=== PATIENT | male | born 1935 | race African-American/Black ===

== ENCOUNTER 2020-07-27 07:21 | Emergency (ER) | payer MEDICARE, BC | END 2020-07-27 08:29 | disposition home or self-care (01) | LOC: ERS 07:21 | DX: T16.2XXA Foreign body in left ear, initial encounter (principal); X58.XXXA Exposure to other specified factors, initial encounter | CPT/HCPCS: 99282 ==

== ENCOUNTER 2020-09-11 17:46 | Inpatient (IN) | payer MEDICARE, BC ==
[2020-09-11 18:39] LABS: Hemoglobin 13.3 g/dL (14.0-18.0); Mean Corpuscular HGB CONC 33.7 g/dL (32.0-36.0); Mean Corpuscular Hemoglobin 29.7 pg (27.0-31.0); Mean Corpuscular Volume 88.2 fL (78.0-98.0); RBC Distribution Width 13.5 % (11.5-14.5); Red Blood Cell (RBC) Count 4.46 mill/uL (4.70-6.10); White Blood Cell (WBC) Count 6.2 thou/uL (4.8-10.8)
[2020-09-11 19:03] LABS: #Lymphocytes 0.6 thou/uL (1.20-3.40); #Monocytes 0.5 thou/uL (0.11-0.59); #Neutrophils 5.1 thou/uL (1.40-6.50); %Basophils 0.7 % (0.0-1.0); %Eosinophils 0.1 % (0.0-10.0); %Lymphocytes 9.8 % (21.0-51.0); %Monocytes 7.8 % (0.0-10.0); %Neutrophils 81.7 % (42.0-75.0); Large Platelets SLIGHT; MDiff Complete? YES; Mean Platelet Volume 11.8 fL (7.4-10.4); Platelet Count 95 thou/uL (130-400); Platelet Morphology Comment Appears Decreased; RBC Morphology Normal
[2020-09-11 19:17] LABS: CKMB 4.5 ng/mL (0-6.6)
[2020-09-11 19:35] LABS: SARS-CoV-2 NAA Rapid Test DETECTED (NotDetected)
[2020-09-11] MEDS ORDERED: Aspirin Chewable 81 MG TAB ONE (19:45)
[2020-09-11 20:50] LABS: Albumin 4.2 g/dL (3.4-4.8)
[2020-09-11 20:51] LABS: Chloride 108 mmol/L (98-107); Potassium 4.4 mmol/L (3.5-5.1); Sodium 142 mmol/L (136-145)
[2020-09-11 20:52] LABS: Calcium 8.4 mg/dL (7.8-10.44); Glucose 188 mg/dL (83-110)
[2020-09-11 20:53] LABS: Globulin 3.8 g/dL (2.4-3.5)
[2020-09-11 20:54] LABS: Anion Gap 18 mmol/L (10-20); Bilirubin, Total 0.5 mg/dL (0.2-1.2); Carbon Dioxide 20 mmol/L (23-31)
[2020-09-11] MEDS ORDERED: Diltiazem 125 MG/25 ML ONE ×2 (20:54→21:33)
[2020-09-11 20:55] LABS: Alkaline Phosphatase 82 U/L (40-110)
[2020-09-11 20:56] LABS: Calc. Creatinine Clearance 0 mL/min (70-130)
[2020-09-11 20:57] LABS: BUN (Urea Nitrogen) 67 mg/dL (8.4-25.7)
[2020-09-11] MEDS ORDERED: Dexamethasone 4 mg/ml Vial ONE (20:57)
[2020-09-11] MEDS ORDERED: cefTRIAXone\\ROCEPHIN 1 GM VIAL ONE (20:57)
[2020-09-11] MEDS ORDERED: Enoxaparin Sodium 40 MG/0.4 ML SYRINGE ONE (20:57)
[2020-09-11 20:58] LABS: ALT (SGPT) 25 U/L (8-55); AST (SGOT) 43 U/L (5-34)
[2020-09-12] MEDS ORDERED: Ondansetron PF 4 MG/2 ML Vial IVP PRN ×2 (00:15→00:34)
[2020-09-12] MEDS ORDERED: Ondansetron ODT 4 MG TAB SL PRN (00:15)
[2020-09-12] MEDS ORDERED: Acetaminophen 325 MG TAB PO PRN ×3 (00:15→00:34)
[2020-09-12] MEDS ORDERED: Diltiazem 125 MG in Sodium Chloride 0.9% 100 ML IVPB SCH (00:15)
[2020-09-12] MEDS ORDERED: Sodium Chloride 0.9% 1,000 ML IV SCH (00:15)
[2020-09-12] MEDS ORDERED: HYDROcodone/Acetaminophen 5/325 mg Tablet PO PRN (00:34)
[2020-09-12] MEDS ORDERED: Labetalol HCl 100 MG/20 ML VIAL SLOW IVP PRN (00:34)
[2020-09-12] MEDS ORDERED: Promethazine HCl 12.5 MG in Sodium Chloride 0.9% 50 ML IVPB PRN (00:34)
[2020-09-12] MEDS ORDERED: cloNIDine 0.1 MG TAB PO PRN (00:34)
[2020-09-12] MEDS ORDERED: hydrALAZINE 20 MG/ML VIAL SLOW IVP PRN (00:34)
[2020-09-12] MEDS ORDERED: Guaifenesin DM 100-10/5 ML UDCUP PO PRN (00:34)
[2020-09-12] MEDS ORDERED: Electrolyte Replacement Protocol 1 EACH FS SCH (00:45)
[2020-09-12] MEDS ORDERED: Dextrose 5% in Water 1,000 ML IV PRN (01:07)
[2020-09-12] MEDS ORDERED: Dextrose 50% Abboject 50 ML SYRINGE SLOW IVP PRN (01:07)
[2020-09-12] MEDS: Alogliptin 6.25 MG TAB PO SCH (08:46)
[2020-09-12] MEDS: Famotidine 20 MG TAB PO SCH (08:47)
[2020-09-12] MEDS: Carvedilol 6.25 MG TAB PO SCH ×2 (08:47→20:47)
[2020-09-12] MEDS: Amlodipine 10 MG TAB PO SCH (08:47)
[2020-09-12] MEDS: Allopurinol 100 MG TAB PO SCH (08:47)
[2020-09-12] MEDS: Glimepiride 2 MG TAB PO SCH (08:47)
[2020-09-12] MEDS: Polyethylene Glycol 3350 17 GM Packet PO SCH (08:48)
[2020-09-12] MEDS: Enoxaparin Sodium 40 MG/0.4 ML SYRINGE SC SCH ×2 (08:48→20:49)
[2020-09-12] MEDS: Ascorbic Acid 500 mg Chewable Tablet PO SCH (08:51)
[2020-09-12] MEDS: Zinc Sulfate 220 MG CAP PO SCH (08:51)
[2020-09-12 12:09] LABS: Anion Gap 24 mmol/L (10-20); BUN (Urea Nitrogen) 72 mg/dL (8.4-25.7); Calc. Creatinine Clearance 18 mL/min (70-130); Calcium 7.9 mg/dL (7.8-10.44); Carbon Dioxide 12 mmol/L (23-31); Chloride 107 mmol/L (98-107); Glucose 296 mg/dL (83-110); Magnesium 2.3 mg/dL (1.6-2.6); Potassium 4.9 mmol/L (3.5-5.1); Sodium 138 mmol/L (136-145)
[2020-09-12] MEDS: HumaLOG 300 UNITS/3 ML VIAL SC PRN ×2 (13:15→16:54)
[2020-09-12] MEDS: Atorvastatin Calcium 10 MG TAB PO SCH (20:45)
[2020-09-12] MEDS: cefTRIAXone\\ROCEPHIN 1 GM in Sodium Chloride 0.9% 100 ML IVPB SCH (20:49)
[2020-09-12] MEDS: Dexamethasone 4 mg/ml Vial SLOW IVP SCH (20:55)
[2020-09-12] MEDS: Latanoprost 0.005% Ophth Soln 2.5 ml Bottle EA EYE SCH (20:56)
[2020-09-12] MEDS ORDERED: Azithromycin 500 MG in Syringe 0 ML IVPB SCH (21:00)
[2020-09-12] MEDS ORDERED: Norepinephrine 8 MG/0.9% NS 250 ML ONE (23:29)
[2020-09-12] MEDS ORDERED: Phenylephrine 40 MG in Sodium Chloride 0.9% 250 ML 250 ML IVPB PRN (23:31)
[2020-09-12] MEDS ORDERED: Norepinephrine 8 MG/0.9% NS 250 ML IVPB PRN (23:31)
[2020-09-12 23:38] LABS: #Lymphocytes 0.6 thou/uL (1.20-3.40); #Monocytes 0.5 thou/uL (0.11-0.59); #Neutrophils 8.1 thou/uL (1.40-6.50); %Basophils 0.2 % (0.0-1.0); %Eosinophils 0.1 % (0.0-10.0); %Lymphocytes 6.6 % (21.0-51.0); %Monocytes 5.5 % (0.0-10.0); %Neutrophils 87.6 % (42.0-75.0); Hemoglobin 10.9 g/dL (14.0-18.0); Mean Corpuscular HGB CONC 33.9 g/dL (32.0-36.0); Mean Corpuscular Volume 88.6 fL (78.0-98.0); Mean Platelet Volume 11.2 fL (7.4-10.4); Platelet Count 114 thou/uL (130-400); RBC Distribution Width 13.5 % (11.5-14.5); Red Blood Cell (RBC) Count 3.64 mill/uL (4.70-6.10); White Blood Cell (WBC) Count 9.3 thou/uL (4.8-10.8)
[2020-09-12] MEDS ORDERED: Lactated Ringer's 500 ML IV SCH (23:45)
[2020-09-12 23:48] LABS: Anion Gap 19 mmol/L (10-20); BUN (Urea Nitrogen) 78 mg/dL (8.4-25.7); Calc. Creatinine Clearance 18 mL/min (70-130); Calcium 7.8 mg/dL (7.8-10.44); Carbon Dioxide 18 mmol/L (23-31); Chloride 106 mmol/L (98-107); Glucose 150 mg/dL (83-110); Potassium 4.7 mmol/L (3.5-5.1); Sodium 138 mmol/L (136-145)
[2020-09-12 23:49] LABS: ALT (SGPT) 25 U/L (8-55); AST (SGOT) 36 U/L (5-34); Albumin 3.5 g/dL (3.4-4.8); Alkaline Phosphatase 71 U/L (40-110); Bilirubin, Direct 0.2 mg/dL (0.1-0.3); Bilirubin, Total 0.4 mg/dL (0.2-1.2); Protein, Total 6.6 g/dL (5.8-8.1)
[2020-09-12 23:50] LABS: Lactic Acid 1.6 mmol/L (0.5-2.2)
[2020-09-12] MEDS ORDERED: Sodium Bicarbonate 100 MEQ in Dextrose 5% in Water 1,000 ML IV SCH (23:59)
[2020-09-13] MEDS: Azithromycin 500 MG in Sodium Chloride 0.9% 250 ML 250 ML IVPB SCH ×2 (00:20→22:00)
[2020-09-13 05:42] LABS: Anion Gap 17 mmol/L (10-20); BUN (Urea Nitrogen) 74 mg/dL (8.4-25.7); Calc. Creatinine Clearance 17 mL/min (70-130); Calcium 7.4 mg/dL (7.8-10.44); Carbon Dioxide 20 mmol/L (23-31); Chloride 103 mmol/L (98-107); Glucose 332 mg/dL (83-110); Magnesium 2.2 mg/dL (1.6-2.6); Potassium 4.3 mmol/L (3.5-5.1); Sodium 136 mmol/L (136-145)
[2020-09-13 05:42] LABS: Hemoglobin 11.1 g/dL (14.0-18.0)
[2020-09-13] MEDS: HumaLOG 300 UNITS/3 ML VIAL SC PRN ×2 (05:59→15:41)
[2020-09-13 06:51] LABS: #Lymphocytes 0.6 thou/uL (1.20-3.40); #Monocytes 0.4 thou/uL (0.11-0.59); #Neutrophils 8.2 thou/uL (1.40-6.50); %Basophils 0.3 % (0.0-1.0); %Monocytes 4.3 % (0.0-10.0); %Neutrophils 88.4 % (42.0-75.0); Mean Corpuscular HGB CONC 32.4 g/dL (32.0-36.0); Mean Corpuscular Hemoglobin 29.2 pg (27.0-31.0); Mean Corpuscular Volume 90.3 fL (78.0-98.0); Mean Platelet Volume 11.7 fL (7.4-10.4); Platelet Count 108 thou/uL (130-400); RBC Distribution Width 13.5 % (11.5-14.5); Red Blood Cell (RBC) Count 3.79 mill/uL (4.70-6.10); White Blood Cell (WBC) Count 9.2 thou/uL (4.8-10.8)
[2020-09-13] MEDS: Famotidine 20 MG TAB PO SCH (08:11)
[2020-09-13] MEDS: Ascorbic Acid 500 mg Chewable Tablet PO SCH (08:11)
[2020-09-13] MEDS: Zinc Sulfate 220 MG CAP PO SCH (08:11)
[2020-09-13] MEDS: Allopurinol 100 MG TAB PO SCH (08:11)
[2020-09-13] MEDS: Enoxaparin Sodium 40 MG/0.4 ML SYRINGE SC SCH (08:12)
[2020-09-13] MEDS: Carvedilol 6.25 MG TAB PO SCH ×3 (08:12→22:00)
[2020-09-13] MEDS: Amlodipine 10 MG TAB PO SCH (08:13)
[2020-09-13] MEDS: Polyethylene Glycol 3350 17 GM Packet PO SCH (08:13)
[2020-09-13] MEDS: Glimepiride 2 MG TAB PO SCH (10:46)
[2020-09-13] MEDS: Alogliptin 6.25 MG TAB PO SCH (10:46)
[2020-09-13] MEDS: Sodium Chloride 0.45% 1,000 ML IV SCH (16:36)
[2020-09-13] MEDS ORDERED: Ziprasidone 20 MG VIAL IM PRN (18:26)
[2020-09-13] MEDS ORDERED: Sterile Water 10 ML VIAL FS PRN (18:45)
[2020-09-13] MEDS: cefTRIAXone\\ROCEPHIN 1 GM in Sodium Chloride 0.9% 100 ML IVPB SCH (21:40)
[2020-09-13] MEDS: Cholecalciferol 1,000 UNITS (25 MCG) TAB PO SCH (21:59)
[2020-09-13] MEDS: Atorvastatin Calcium 10 MG TAB PO SCH (22:00)
[2020-09-13] MEDS: Heparin 5,000 UNITS/ML VIAL SC SCH (22:00)
[2020-09-13] MEDS: NPH, Human Insulin Isophane 300 UNIT/3 ML VIAL SC SCH (22:01)
[2020-09-13] MEDS: Dexamethasone 4 mg/ml Vial SLOW IVP SCH (22:04)
[2020-09-13] MEDS: Latanoprost 0.005% Ophth Soln 2.5 ml Bottle EA EYE SCH (22:05)
[2020-09-14] MEDS: Sodium Chloride 0.45% 1,000 ML IV SCH ×2 (04:07→16:42)
[2020-09-14 04:25] LABS: #Lymphocytes 0.4 thou/uL (1.20-3.40); #Monocytes 0.5 thou/uL (0.11-0.59); #Neutrophils 9.1 thou/uL (1.40-6.50); %Eosinophils 0.1 % (0.0-10.0); %Lymphocytes 4.3 % (21.0-51.0); %Monocytes 4.6 % (0.0-10.0); %Neutrophils 91.1 % (42.0-75.0); Hemoglobin 10.2 g/dL (14.0-18.0); Mean Corpuscular HGB CONC 34.1 g/dL (32.0-36.0); Mean Corpuscular Hemoglobin 30.2 pg (27.0-31.0); Mean Corpuscular Volume 88.6 fL (78.0-98.0); Mean Platelet Volume 10.6 fL (7.4-10.4); Platelet Count 137 thou/uL (130-400); RBC Distribution Width 13.4 % (11.5-14.5); Red Blood Cell (RBC) Count 3.38 mill/uL (4.70-6.10)
[2020-09-14 04:48] LABS: Actual Bicarbonate (HCO3a) 18.1 mEq/L (22-28); Base Excess (BEa) -5.3 mEq/L (-2.0 to +3.0); CO2 Tension 29.1 mmHg (35.0-45.0); Calcium, Ionized (arterial) 1.01 mmol/L (1.12-1.30); Carboxyhemoglobin (COHb) 0.3 gm% (0.0-3.0); Hemoglobin (Hb) 11.9 g/dL (14.0-18.0); pH, Arterial 7.41 (7.35-7.45)
[2020-09-14 04:54] LABS: Anion Gap 16 mmol/L (10-20); BUN (Urea Nitrogen) 82 mg/dL (8.4-25.7); Calc. Creatinine Clearance 19 mL/min (70-130); Calcium 7.3 mg/dL (7.8-10.44); Carbon Dioxide 21 mmol/L (23-31); Chloride 106 mmol/L (98-107); Glucose 164 mg/dL (83-110); Magnesium 2.2 mg/dL (1.6-2.6); Potassium 4.4 mmol/L (3.5-5.1); Sodium 139 mmol/L (136-145)
[2020-09-14 05:12] LABS: O2 Tension (PaO2), arterial 46.6 mmHg (> 60.0)
[2020-09-14 05:19] LABS: ALV-art Gradient 508.815 mmHg (0-20); Puncture Site RRA
[2020-09-14] MEDS ORDERED: Ventilator Sedation Protocol 1 EACH FS SCH (08:15)
[2020-09-14] MEDS ORDERED: Fentanyl CADD 100 ML ONE (08:27)
[2020-09-14] MEDS ORDERED: Propofol BOLUS 1,000 MG/100 ML VIAL IV PRN (08:30)
[2020-09-14] MEDS ORDERED: DISCONTINUE PREVIOUS NARCOTIC PAIN MEDICATIONS AND BENZODIAZEPINES FS SCH (08:30)
[2020-09-14] MEDS ORDERED: Fentanyl BOLUS 250 ML IVPB PRN (08:30)
[2020-09-14] MEDS: Vecuronium 10 MG VIAL IVP PRN (08:52)
[2020-09-14] MEDS: Propofol 1,000 MG/100 ML VIAL IV PRN ×4 (08:52→23:34)
[2020-09-14 09:45] LABS: Actual Bicarbonate (HCO3a) 18.4 mEq/L (22-28); Base Excess (BEa) -6.4 mEq/L (-2.0 to +3.0); CO2 Tension 34.2 mmHg (35.0-45.0); Calcium, Ionized (arterial) 1.03 mmol/L (1.12-1.30); Carboxyhemoglobin (COHb) 0.3 gm% (0.0-3.0); Hemoglobin (Hb) 11.7 g/dL (14.0-18.0); Potassium - ABG Lab 4.66 mmol/L (3.70-5.30); pH, Arterial 7.35 (7.35-7.45)
[2020-09-14 09:51] LABS: O2 Tension (PaO2), arterial 53.1 mmHg (> 60.0)
[2020-09-14 09:52] LABS: Puncture Site RRA
[2020-09-14] MEDS: Amlodipine 10 MG TAB PO SCH (10:55)
[2020-09-14] MEDS: Ascorbic Acid 500 mg Chewable Tablet PO SCH (10:55)
[2020-09-14] MEDS: Zinc Sulfate 220 MG CAP PO SCH (10:56)
[2020-09-14] MEDS: Carvedilol 6.25 MG TAB PO SCH (10:56)
[2020-09-14] MEDS: Famotidine 20 MG TAB PO SCH (10:59)
[2020-09-14] MEDS: Heparin 5,000 UNITS/ML VIAL SC SCH ×2 (10:59→19:53)
[2020-09-14] MEDS: Alogliptin 6.25 MG TAB PO SCH (11:00)
[2020-09-14] MEDS: NPH, Human Insulin Isophane 300 UNIT/3 ML VIAL SC SCH ×2 (11:01→19:56)
[2020-09-14] MEDS: Polyethylene Glycol 3350 17 GM Packet PO SCH (11:01)
[2020-09-14] MEDS ORDERED: Carvedilol 6.25 MG TAB PO SCH (14:00)
[2020-09-14] MEDS: HumaLOG 300 UNITS/3 ML VIAL SC PRN ×2 (16:38→20:40)
[2020-09-14] MEDS: Atorvastatin Calcium 10 MG TAB PO SCH (19:51)
[2020-09-14] MEDS: Cholecalciferol 1,000 UNITS (25 MCG) TAB PO SCH (19:52)
[2020-09-14] MEDS: cefTRIAXone\\ROCEPHIN 1 GM in Sodium Chloride 0.9% 100 ML IVPB SCH (19:52)
[2020-09-14] MEDS: Azithromycin 500 MG in Sodium Chloride 0.9% 250 ML 250 ML IVPB SCH (19:54)
[2020-09-14] MEDS: Latanoprost 0.005% Ophth Soln 2.5 ml Bottle EA EYE SCH ×2 (19:57→23:49)
[2020-09-14] MEDS: Dexamethasone 4 mg/ml Vial SLOW IVP SCH (19:58)
[2020-09-14] MEDS ORDERED: cefTRIAXone\\ROCEPHIN 1 GM VIAL ONE (20:15)
[2020-09-15] MEDS: HumaLOG 300 UNITS/3 ML VIAL SC PRN ×2 (03:48→16:11)
[2020-09-15] MEDS ORDERED: Fentanyl CADD 100 ML ONE ×2 (04:24→20:54)
[2020-09-15] MEDS: Fentanyl CADD 100 ML IV SCH (04:30)
[2020-09-15 04:59] LABS: Anion Gap 19 mmol/L (10-20); BUN (Urea Nitrogen) 82 mg/dL (8.4-25.7); Calc. Creatinine Clearance 19 mL/min (70-130); Calcium 6.7 mg/dL (7.8-10.44); Carbon Dioxide 16 mmol/L (23-31); Chloride 107 mmol/L (98-107); Glucose 166 mg/dL (83-110); Potassium 4.6 mmol/L (3.5-5.1); Sodium 137 mmol/L (136-145)
[2020-09-15] MEDS: Propofol 1,000 MG/100 ML VIAL IV PRN ×3 (05:16→18:49)
[2020-09-15] MEDS: Sodium Chloride 0.45% 1,000 ML IV SCH (05:17)
[2020-09-15 05:19] LABS: #Lymphocytes 0.4 thou/uL (1.20-3.40); #Monocytes 0.4 thou/uL (0.11-0.59); #Neutrophils 7.3 thou/uL (1.40-6.50); %Basophils 0.3 % (0.0-1.0); %Eosinophils 0.1 % (0.0-10.0); %Lymphocytes 4.5 % (21.0-51.0); %Monocytes 4.9 % (0.0-10.0); %Neutrophils 90.2 % (42.0-75.0); Hemoglobin 8.6 g/dL (14.0-18.0); Mean Corpuscular Hemoglobin 28.5 pg (27.0-31.0); Mean Corpuscular Volume 89.2 fL (78.0-98.0); Mean Platelet Volume 10.6 fL (7.4-10.4); Platelet Count 142 thou/uL (130-400); RBC Distribution Width 13.5 % (11.5-14.5); Red Blood Cell (RBC) Count 3.01 mill/uL (4.70-6.10)
[2020-09-15] MEDS: Zinc Sulfate 220 MG CAP PO SCH ×2 (08:15→08:22)
[2020-09-15] MEDS: Ascorbic Acid 500 mg Chewable Tablet PO SCH (08:23)
[2020-09-15] MEDS: Famotidine 20 MG TAB PO SCH (08:23)
[2020-09-15] MEDS: Ergocalciferol 1.25 MG(50,000 UNITS) CAP PO SCH (08:24)
[2020-09-15] MEDS: Amlodipine 10 MG TAB PO SCH (08:25)
[2020-09-15] MEDS: Heparin 5,000 UNITS/ML VIAL SC SCH ×2 (08:26→21:03)
[2020-09-15] MEDS: NPH, Human Insulin Isophane 300 UNIT/3 ML VIAL SC SCH ×2 (08:28→22:50)
[2020-09-15] MEDS: Polyethylene Glycol 3350 17 GM Packet PO SCH (08:28)
[2020-09-15] MEDS: Alogliptin 6.25 MG TAB PO SCH (08:31)
[2020-09-15] MEDS: Sodium Bicarbonate 70 MEQ in Dextrose 5% in Water 1,000 ML IV SCH (10:14)
[2020-09-15] MEDS: Vecuronium 10 MG VIAL IVP PRN (15:45)
[2020-09-15] MEDS: cefTRIAXone\\ROCEPHIN 1 GM in Sodium Chloride 0.9% 100 ML IVPB SCH (21:04)
[2020-09-15] MEDS: Atorvastatin Calcium 10 MG TAB PO SCH (21:45)
[2020-09-15] MEDS: Cholecalciferol 1,000 UNITS (25 MCG) TAB PO SCH (21:45)
[2020-09-15] MEDS: Latanoprost 0.005% Ophth Soln 2.5 ml Bottle EA EYE SCH (21:50)
[2020-09-15] MEDS: Azithromycin 500 MG in Sodium Chloride 0.9% 250 ML 250 ML IVPB SCH (21:56)
[2020-09-15] MEDS: Dexamethasone 4 mg/ml Vial SLOW IVP SCH (21:57)
[2020-09-16] MEDS: Sodium Bicarbonate 70 MEQ in Dextrose 5% in Water 1,000 ML IV SCH ×2 (00:26→14:16)
[2020-09-16] MEDS: Propofol 1,000 MG/100 ML VIAL IV PRN ×3 (02:22→20:42)
[2020-09-16 05:17] LABS: #Lymphocytes 0.3 thou/uL (1.20-3.40); #Monocytes 0.6 thou/uL (0.11-0.59); #Neutrophils 9.6 thou/uL (1.40-6.50); %Eosinophils 0.3 % (0.0-10.0); %Lymphocytes 3.1 % (21.0-51.0); %Monocytes 5.2 % (0.0-10.0); %Neutrophils 91.4 % (42.0-75.0); Hemoglobin 8.9 g/dL (14.0-18.0); Mean Corpuscular HGB CONC 34.1 g/dL (32.0-36.0); Mean Corpuscular Hemoglobin 30.2 pg (27.0-31.0); Mean Corpuscular Volume 88.4 fL (78.0-98.0); Mean Platelet Volume 10.3 fL (7.4-10.4); Platelet Count 145 thou/uL (130-400); RBC Distribution Width 13.4 % (11.5-14.5); Red Blood Cell (RBC) Count 2.93 mill/uL (4.70-6.10); White Blood Cell (WBC) Count 10.5 thou/uL (4.8-10.8)
[2020-09-16 05:36] LABS: Anion Gap 19 mmol/L (10-20); BUN (Urea Nitrogen) 88 mg/dL (8.4-25.7); Calc. Creatinine Clearance 20 mL/min (70-130); Calcium 6.3 mg/dL (7.8-10.44); Carbon Dioxide 16 mmol/L (23-31); Chloride 105 mmol/L (98-107); Glucose 220 mg/dL (83-110); Potassium 4.5 mmol/L (3.5-5.1); Sodium 135 mmol/L (136-145)
[2020-09-16] MEDS: Lorazepam 2 MG/ML VIAL SLOW IVP PRN ×2 (07:43→10:14)
[2020-09-16] MEDS: Vecuronium 10 MG VIAL IVP PRN ×4 (07:43→20:40)
[2020-09-16] MEDS: Famotidine 20 MG TAB PO SCH (07:47)
[2020-09-16] MEDS: Amlodipine 10 MG TAB PO SCH (07:47)
[2020-09-16] MEDS: Zinc Sulfate 220 MG CAP PO SCH (07:47)
[2020-09-16] MEDS: Ascorbic Acid 500 mg Chewable Tablet PO SCH (07:47)
[2020-09-16] MEDS: Heparin 5,000 UNITS/ML VIAL SC SCH ×2 (07:48→20:40)
[2020-09-16] MEDS: Polyethylene Glycol 3350 17 GM Packet PO SCH (07:48)
[2020-09-16] MEDS: NPH, Human Insulin Isophane 300 UNIT/3 ML VIAL SC SCH ×2 (07:49→23:11)
[2020-09-16] MEDS: HumaLOG 300 UNITS/3 ML VIAL SC PRN (12:21)
[2020-09-16] MEDS ORDERED: Fentanyl CADD 100 ML ONE (14:04)
[2020-09-16] MEDS: Fentanyl CADD 100 ML IV SCH (14:22)
[2020-09-16] MEDS: cefTRIAXone\\ROCEPHIN 1 GM in Sodium Chloride 0.9% 100 ML IVPB SCH (20:40)
[2020-09-16] MEDS: Cholecalciferol 1,000 UNITS (25 MCG) TAB PO SCH (20:42)
[2020-09-16] MEDS: Atorvastatin Calcium 10 MG TAB PO SCH (21:12)
[2020-09-16] MEDS: Azithromycin 500 MG in Sodium Chloride 0.9% 250 ML 250 ML IVPB SCH (21:12)
[2020-09-16] MEDS: Latanoprost 0.005% Ophth Soln 2.5 ml Bottle EA EYE SCH (21:13)
[2020-09-16] MEDS: Dexamethasone 4 mg/ml Vial SLOW IVP SCH (21:24)
[2020-09-17 05:10] LABS: Anion Gap 19 mmol/L (10-20); BUN (Urea Nitrogen) 88 mg/dL (8.4-25.7); Calc. Creatinine Clearance 20 mL/min (70-130); Calcium 6.1 mg/dL (7.8-10.44); Carbon Dioxide 18 mmol/L (23-31); Chloride 100 mmol/L (98-107); Glucose 292 mg/dL (83-110); Potassium 4.3 mmol/L (3.5-5.1); Sodium 133 mmol/L (136-145)
[2020-09-17 05:36] LABS: Hemoglobin 8.7 g/dL (14.0-18.0); Mean Corpuscular HGB CONC 34.1 g/dL (32.0-36.0); Mean Corpuscular Hemoglobin 30.1 pg (27.0-31.0); Mean Corpuscular Volume 88.2 fL (78.0-98.0); Mean Platelet Volume 10.3 fL (7.4-10.4); Platelet Count 144 thou/uL (130-400); RBC Distribution Width 13.5 % (11.5-14.5); Red Blood Cell (RBC) Count 2.88 mill/uL (4.70-6.10); White Blood Cell (WBC) Count 11.9 thou/uL (4.8-10.8)
[2020-09-17 05:38] LABS: Band 10 % (5-11); Eosinophils 1 % (0-10); Lymphocytes 2 % (21-51); MDiff Complete? YES; Metamyelocyte 1 % (0-0); Monocytes 5 % (0-10); Neutrophil 81 % (42-75)
[2020-09-17] MEDS: Sodium Bicarbonate 70 MEQ in Dextrose 5% in Water 1,000 ML IV SCH ×2 (06:29→18:01)
[2020-09-17] MEDS: Famotidine 20 MG TAB PO SCH (07:47)
[2020-09-17] MEDS: Propofol 1,000 MG/100 ML VIAL IV PRN ×3 (07:47→23:20)
[2020-09-17] MEDS: Ascorbic Acid 500 mg Chewable Tablet PO SCH (07:48)
[2020-09-17] MEDS: Zinc Sulfate 220 MG CAP PO SCH (07:49)
[2020-09-17] MEDS: Heparin 5,000 UNITS/ML VIAL SC SCH ×2 (07:50→22:03)
[2020-09-17] MEDS: NPH, Human Insulin Isophane 300 UNIT/3 ML VIAL SC SCH ×2 (07:51→22:06)
[2020-09-17] MEDS: Polyethylene Glycol 3350 17 GM Packet PO SCH (07:52)
[2020-09-17] MEDS: Amlodipine 10 MG TAB PO SCH (10:22)
[2020-09-17] MEDS ORDERED: NPH, Human Insulin Isophane 300 UNIT/3 ML VIAL SC SCH (11:00)
[2020-09-17] MEDS: HumaLOG 300 UNITS/3 ML VIAL SC PRN ×2 (11:19→17:29)
[2020-09-17] MEDS ORDERED: Fentanyl CADD 100 ML ONE (14:31)
[2020-09-17] MEDS: Fentanyl CADD 100 ML IV SCH (14:34)
[2020-09-17] MEDS ORDERED: Metoclopramide HCl 10 MG/2 ML VIAL IVP PRN (16:55)
[2020-09-17] MEDS: cefTRIAXone\\ROCEPHIN 1 GM in Sodium Chloride 0.9% 100 ML IVPB SCH (22:03)
[2020-09-17] MEDS: Dexamethasone 4 mg/ml Vial SLOW IVP SCH (22:04)
[2020-09-17] MEDS: Cholecalciferol 1,000 UNITS (25 MCG) TAB PO SCH (22:04)
[2020-09-17] MEDS: Atorvastatin Calcium 10 MG TAB PO SCH (22:05)
[2020-09-17] MEDS: Latanoprost 0.005% Ophth Soln 2.5 ml Bottle EA EYE SCH (22:05)
[2020-09-17] MEDS: Azithromycin 500 MG in Sodium Chloride 0.9% 250 ML 250 ML IVPB SCH (22:30)
[2020-09-18 05:21] LABS: Anion Gap 16 mmol/L (10-20); BUN (Urea Nitrogen) 86 mg/dL (8.4-25.7); Calc. Creatinine Clearance 24 mL/min (70-130); Carbon Dioxide 22 mmol/L (23-31); Chloride 99 mmol/L (98-107); Glucose 244 mg/dL (83-110); Potassium 4.2 mmol/L (3.5-5.1); Sodium 133 mmol/L (136-145)
[2020-09-18 05:26] LABS: Calcium 5.8 mg/dL (7.8-10.44)
[2020-09-18 05:47] LABS: Hemoglobin 9.1 g/dL (14.0-18.0); Mean Corpuscular HGB CONC 33.9 g/dL (32.0-36.0); Mean Corpuscular Hemoglobin 30.1 pg (27.0-31.0); Mean Corpuscular Volume 88.8 fL (78.0-98.0); Mean Platelet Volume 10.1 fL (7.4-10.4); Platelet Count 135 thou/uL (130-400); RBC Distribution Width 13.8 % (11.5-14.5)
[2020-09-18 05:58] LABS: Band 7 % (5-11); MDiff Complete? YES; Metamyelocyte 3 % (0-0); Monocytes 9 % (0-10); Myelocyte 6 % (0-0); Neutrophil 75 % (42-75)
[2020-09-18] MEDS ORDERED: Sterile Water 0 ML ONE (06:20)
[2020-09-18] MEDS: Vecuronium 10 MG VIAL IVP PRN (06:34)
[2020-09-18 06:56] VITALS: TEMP 97.3
[2020-09-18] MEDS: Propofol 1,000 MG/100 ML VIAL IV PRN ×3 (06:58→20:55)
[2020-09-18] MEDS ORDERED: Fentanyl CADD 100 ML ONE ×2 (07:19→22:12)
[2020-09-18] MEDS: Heparin 5,000 UNITS/ML VIAL SC SCH ×2 (07:56→20:56)
[2020-09-18] MEDS: Famotidine 20 MG TAB PO SCH (07:56)
[2020-09-18] MEDS: Ascorbic Acid 500 mg Chewable Tablet PO SCH (07:56)
[2020-09-18] MEDS: Polyethylene Glycol 3350 17 GM Packet PO SCH (07:56)
[2020-09-18] MEDS: Zinc Sulfate 220 MG CAP PO SCH (07:56)
[2020-09-18] MEDS ORDERED: Calcium Gluconate 4.6 MEQ in Sodium Chloride 0.9% 100 ML IVPB SCH (08:43)
[2020-09-18] MEDS: Sodium Bicarbonate 70 MEQ in Dextrose 5% in Water 1,000 ML IV SCH ×2 (08:59→23:20)
[2020-09-18] MEDS: NPH, Human Insulin Isophane 300 UNIT/3 ML VIAL SC SCH ×2 (09:54→21:27)
[2020-09-18] MEDS: HumaLOG 300 UNITS/3 ML VIAL SC PRN ×2 (10:22→17:36)
[2020-09-18] MEDS: Lorazepam 2 MG/ML VIAL SLOW IVP PRN (11:58)
[2020-09-18] MEDS: Scopolamine 1.5 mg/72 hour Patch TD SCH (17:44)
[2020-09-18] MEDS: cefTRIAXone\\ROCEPHIN 1 GM in Sodium Chloride 0.9% 100 ML IVPB SCH (20:56)
[2020-09-18] MEDS: Atorvastatin Calcium 10 MG TAB PO SCH (20:57)
[2020-09-18] MEDS: Cholecalciferol 1,000 UNITS (25 MCG) TAB PO SCH (20:57)
[2020-09-18] MEDS: Dexamethasone 4 mg/ml Vial SLOW IVP SCH (20:57)
[2020-09-18] MEDS: Latanoprost 0.005% Ophth Soln 2.5 ml Bottle EA EYE SCH (20:57)
[2020-09-18] MEDS: Azithromycin 500 MG in Sodium Chloride 0.9% 250 ML 250 ML IVPB SCH (21:27)
[2020-09-19 04:17] LABS: Anion Gap 17 mmol/L (10-20); BUN (Urea Nitrogen) 85 mg/dL (8.4-25.7); Calc. Creatinine Clearance 28 mL/min (70-130); Carbon Dioxide 20 mmol/L (23-31); Chloride 98 mmol/L (98-107); Glucose 361 mg/dL (83-110); Potassium 4.2 mmol/L (3.5-5.1); Sodium 131 mmol/L (136-145)
[2020-09-19 04:19] LABS: Calcium 5.6 mg/dL (7.8-10.44)
[2020-09-19 04:34] LABS: Band 13 % (5-11); Hemoglobin 8.3 g/dL (14.0-18.0); Lymphocytes 2 % (21-51); MDiff Complete? YES; Mean Corpuscular HGB CONC 33.8 g/dL (32.0-36.0); Mean Corpuscular Volume 88.7 fL (78.0-98.0); Mean Platelet Volume 9.6 fL (7.4-10.4); Metamyelocyte 3 % (0-0); Monocytes 3 % (0-10); Myelocyte 2 % (0-0); Neutrophil 77 % (42-75); Platelet Count 141 thou/uL (130-400); RBC Distribution Width 13.8 % (11.5-14.5); Red Blood Cell (RBC) Count 2.76 mill/uL (4.70-6.10); White Blood Cell (WBC) Count 17.2 thou/uL (4.8-10.8)
[2020-09-19] MEDS: HumaLOG 300 UNITS/3 ML VIAL SC PRN ×3 (05:03→21:38)
[2020-09-19] MEDS: Ascorbic Acid 500 mg Chewable Tablet PO SCH (09:20)
[2020-09-19] MEDS: Heparin 5,000 UNITS/ML VIAL SC SCH ×2 (09:21→21:09)
[2020-09-19] MEDS: Polyethylene Glycol 3350 17 GM Packet PO SCH (09:21)
[2020-09-19] MEDS: Famotidine 20 MG TAB PO SCH (09:21)
[2020-09-19] MEDS: Zinc Sulfate 220 MG CAP PO SCH (09:21)
[2020-09-19] MEDS: Piperacillin/Tazobactam 3.375 GM in Sodium Chloride 0.9% 100 ML IVPB SCH ×3 (09:22→21:14)
[2020-09-19] MEDS: NPH, Human Insulin Isophane 300 UNIT/3 ML VIAL SC SCH ×3 (09:24→21:35)
[2020-09-19] MEDS ORDERED: Calcium Gluconate 4.6 MEQ in Sodium Chloride 0.9% 100 ML IVPB SCH (09:30)
[2020-09-19] MEDS: Sodium Bicarbonate 70 MEQ in Dextrose 5% in Water 1,000 ML IV SCH (10:08)
[2020-09-19] MEDS: Propofol 1,000 MG/100 ML VIAL IV PRN ×2 (11:51→18:45)
[2020-09-19] MEDS: Fentanyl CADD 100 ML IV SCH (14:46)
[2020-09-19 17:32] LABS: Magnesium 2.3 mg/dL (1.6-2.6)
[2020-09-19] MEDS: Fluconazole In NaCl,Iso-Osm 100 MG, Admixture Fee 1 EACH in Premix Bag 1 BAG IVPB SCH (18:13)
[2020-09-19] MEDS: Atorvastatin Calcium 10 MG TAB PO SCH (21:08)
[2020-09-19] MEDS: Cholecalciferol 1,000 UNITS (25 MCG) TAB PO SCH (21:09)
[2020-09-19] MEDS: Latanoprost 0.005% Ophth Soln 2.5 ml Bottle EA EYE SCH (21:10)
[2020-09-19] MEDS: Dexamethasone 4 mg/ml Vial SLOW IVP SCH (21:18)
[2020-09-20] MEDS: Propofol 1,000 MG/100 ML VIAL IV PRN ×4 (01:02→20:36)
[2020-09-20] MEDS: Piperacillin/Tazobactam 3.375 GM in Sodium Chloride 0.9% 100 ML IVPB SCH ×4 (03:18→21:23)
[2020-09-20] MEDS: Sodium Bicarbonate 70 MEQ in Dextrose 5% in Water 1,000 ML IV SCH (04:28)
[2020-09-20] MEDS: HumaLOG 300 UNITS/3 ML VIAL SC PRN ×3 (04:33→21:15)
[2020-09-20 05:28] LABS: Anion Gap 20 mmol/L (10-20); BUN (Urea Nitrogen) 90 mg/dL (8.4-25.7); Calc. Creatinine Clearance 27 mL/min (70-130); Calcium 6.3 mg/dL (7.8-10.44); Carbon Dioxide 22 mmol/L (23-31); Chloride 94 mmol/L (98-107); Glucose 233 mg/dL (83-110); Potassium 4.6 mmol/L (3.5-5.1); Sodium 131 mmol/L (136-145)
[2020-09-20 05:53] LABS: Hemoglobin 8.6 g/dL (14.0-18.0); Mean Corpuscular HGB CONC 32.7 g/dL (32.0-36.0); Mean Corpuscular Hemoglobin 29.2 pg (27.0-31.0); Mean Corpuscular Volume 89.2 fL (78.0-98.0); Mean Platelet Volume 10.5 fL (7.4-10.4); Platelet Count 163 thou/uL (130-400); RBC Distribution Width 14.2 % (11.5-14.5); Red Blood Cell (RBC) Count 2.94 mill/uL (4.70-6.10); White Blood Cell (WBC) Count 19.7 thou/uL (4.8-10.8)
[2020-09-20 06:25] LABS: Band 12 % (5-11); Lymphocytes 5 % (21-51); MDiff Complete? YES; Metamyelocyte 2 % (0-0); Monocytes 6 % (0-10); Myelocyte 2 % (0-0); Neutrophil 73 % (42-75); Nucleated RBC 2 % (0)
[2020-09-20] MEDS ORDERED: Fentanyl CADD 100 ML ONE ×2 (07:00→23:16)
[2020-09-20] MEDS ORDERED: Furosemide 40 MG/4 ML VIAL SLOW IVP SCH (09:00)
[2020-09-20] MEDS ORDERED: Calcium Gluconate 4.6 MEQ in Sodium Chloride 0.9% 100 ML IVPB SCH (09:00)
[2020-09-20] MEDS: Sodium Chloride 0.9% 1,000 ML IV SCH (09:31)
[2020-09-20] MEDS: NPH, Human Insulin Isophane 300 UNIT/3 ML VIAL SC SCH ×3 (09:32→21:14)
[2020-09-20] MEDS: Ascorbic Acid 500 mg Chewable Tablet PO SCH (09:35)
[2020-09-20] MEDS: Famotidine 20 MG TAB PO SCH (09:35)
[2020-09-20] MEDS: Heparin 5,000 UNITS/ML VIAL SC SCH ×2 (09:36→20:52)
[2020-09-20] MEDS: Zinc Sulfate 220 MG CAP PO SCH (09:36)
[2020-09-20] MEDS: Dexamethasone 4 mg/ml Vial SLOW IVP SCH (09:36)
[2020-09-20] MEDS: Polyethylene Glycol 3350 17 GM Packet PO SCH (09:36)
[2020-09-20] MEDS: Fluconazole In NaCl,Iso-Osm 100 MG, Admixture Fee 1 EACH in Premix Bag 1 BAG IVPB SCH (17:32)
[2020-09-20] MEDS: Cholecalciferol 1,000 UNITS (25 MCG) TAB PO SCH (20:52)
[2020-09-20] MEDS: Atorvastatin Calcium 10 MG TAB PO SCH (20:52)
[2020-09-20] MEDS: Latanoprost 0.005% Ophth Soln 2.5 ml Bottle EA EYE SCH (20:53)
[2020-09-20] MEDS: Fentanyl CADD 100 ML IV SCH (23:22)
[2020-09-21] MEDS: Propofol 1,000 MG/100 ML VIAL IV PRN ×5 (01:42→21:51)
[2020-09-21] MEDS: Piperacillin/Tazobactam 3.375 GM in Sodium Chloride 0.9% 100 ML IVPB SCH ×4 (04:50→21:16)
[2020-09-21] MEDS: HumaLOG 300 UNITS/3 ML VIAL SC PRN ×4 (04:51→21:12)
[2020-09-21] MEDS: Sodium Chloride 0.9% 1,000 ML IV SCH ×2 (04:52→07:11)
[2020-09-21 05:34] LABS: Anion Gap 17 mmol/L (10-20); BUN (Urea Nitrogen) 96 mg/dL (8.4-25.7); Calc. Creatinine Clearance 0 mL/min (70-130); Calcium 6.8 mg/dL (7.8-10.44); Carbon Dioxide 25 mmol/L (23-31); Chloride 94 mmol/L (98-107); Glucose 315 mg/dL (83-110); Potassium 4.4 mmol/L (3.5-5.1); Sodium 132 mmol/L (136-145)
[2020-09-21 06:38] LABS: Hemoglobin 8.8 g/dL (14.0-18.0); Mean Corpuscular HGB CONC 33.7 g/dL (32.0-36.0); Mean Corpuscular Hemoglobin 30.4 pg (27.0-31.0); Mean Corpuscular Volume 90.2 fL (78.0-98.0); Mean Platelet Volume 9.5 fL (7.4-10.4); Platelet Count 162 thou/uL (130-400); RBC Distribution Width 14.1 % (11.5-14.5); Red Blood Cell (RBC) Count 2.88 mill/uL (4.70-6.10); White Blood Cell (WBC) Count 20.6 thou/uL (4.8-10.8)
[2020-09-21 08:18] LABS: Band 11 % (5-11); Burr Cells SLIGHT = 2-5 cells (100X) (0-1/hpf); Lymphocytes 6 % (21-51); MDiff Complete? YES; Metamyelocyte 4 % (0-0); Monocytes 8 % (0-10); Myelocyte 5 % (0-0); Neutrophil 66 % (42-75); Nucleated RBC 2 % (0); Platelet Morphology Comment Appears Adequate; Polychromasia SLIGHT = 2-3 cells (100X) (0-2/hpf)
[2020-09-21] MEDS: NPH, Human Insulin Isophane 300 UNIT/3 ML VIAL SC SCH ×3 (09:21→21:11)
[2020-09-21] MEDS: Polyethylene Glycol 3350 17 GM Packet PO SCH (09:54)
[2020-09-21] MEDS: Zinc Sulfate 220 MG CAP PO SCH (09:54)
[2020-09-21] MEDS: Ascorbic Acid 500 mg Chewable Tablet PO SCH (09:54)
[2020-09-21] MEDS: Famotidine 20 MG TAB PO SCH (09:54)
[2020-09-21] MEDS: Dexamethasone 4 mg/ml Vial SLOW IVP SCH (09:55)
[2020-09-21] MEDS: Heparin 5,000 UNITS/ML VIAL SC SCH ×2 (09:57→20:38)
[2020-09-21] MEDS: Lorazepam 2 MG/ML VIAL SLOW IVP PRN (12:47)
[2020-09-21] MEDS ORDERED: Fentanyl CADD 100 ML ONE (13:53)
[2020-09-21] MEDS: Scopolamine 1.5 mg/72 hour Patch TD SCH (16:26)
[2020-09-21] MEDS: Fluconazole In NaCl,Iso-Osm 100 MG, Admixture Fee 1 EACH in Premix Bag 1 BAG IVPB SCH (16:27)
[2020-09-21] MEDS: Atorvastatin Calcium 10 MG TAB PO SCH (20:37)
[2020-09-21] MEDS: Cholecalciferol 1,000 UNITS (25 MCG) TAB PO SCH (20:37)
[2020-09-21] MEDS: Latanoprost 0.005% Ophth Soln 2.5 ml Bottle EA EYE SCH (20:38)
[2020-09-22] MEDS: Piperacillin/Tazobactam 3.375 GM in Sodium Chloride 0.9% 100 ML IVPB SCH ×4 (03:19→22:12)
[2020-09-22] MEDS: HumaLOG 300 UNITS/3 ML VIAL SC PRN ×4 (03:20→21:16)
[2020-09-22] MEDS: Propofol 1,000 MG/100 ML VIAL IV PRN ×5 (03:49→22:13)
[2020-09-22 04:10] LABS: Anion Gap 20 mmol/L (10-20); BUN (Urea Nitrogen) 95 mg/dL (8.4-25.7); Calc. Creatinine Clearance 0 mL/min (70-130); Calcium 6.8 mg/dL (7.8-10.44); Carbon Dioxide 20 mmol/L (23-31); Chloride 97 mmol/L (98-107); Glucose 285 mg/dL (83-110); Potassium 4.5 mmol/L (3.5-5.1); Sodium 132 mmol/L (136-145)
[2020-09-22 04:37] LABS: Band 7 % (5-11); Eosinophils 1 % (0-10); Hemoglobin 8.6 g/dL (14.0-18.0); Hypochromia SLIGHT = 6-15 cells (100X) (0-5/hpf); Lymphocytes 11 % (21-51); MDiff Complete? YES; Mean Corpuscular HGB CONC 33.9 g/dL (32.0-36.0); Mean Corpuscular Hemoglobin 30.3 pg (27.0-31.0); Mean Corpuscular Volume 89.5 fL (78.0-98.0); Mean Platelet Volume 9.5 fL (7.4-10.4); Metamyelocyte 3 % (0-0); Monocytes 9 % (0-10); Neutrophil 69 % (42-75); Nucleated RBC 1 % (0); Platelet Count 166 thou/uL (130-400); Platelet Morphology Comment Appears Adequate; RBC Distribution Width 14.7 % (11.5-14.5); Red Blood Cell (RBC) Count 2.82 mill/uL (4.70-6.10)
[2020-09-22] MEDS: Lorazepam 2 MG/ML VIAL SLOW IVP PRN (05:48)
[2020-09-22] MEDS: Morphine 2 MG/ML VIAL SLOW IVP PRN (05:58)
[2020-09-22] MEDS ORDERED: Fentanyl CADD 100 ML ONE ×2 (06:05→21:40)
[2020-09-22] MEDS: Sodium Chloride 0.9% 1,000 ML IV SCH (07:36)
[2020-09-22] MEDS: Heparin 5,000 UNITS/ML VIAL SC SCH ×2 (08:52→20:59)
[2020-09-22] MEDS: Dexamethasone 4 mg/ml Vial SLOW IVP SCH (08:52)
[2020-09-22] MEDS: Polyethylene Glycol 3350 17 GM Packet PO SCH (08:52)
[2020-09-22] MEDS: Ascorbic Acid 500 mg Chewable Tablet PO SCH (08:52)
[2020-09-22] MEDS: Famotidine 20 MG TAB PO SCH (08:53)
[2020-09-22] MEDS: NPH, Human Insulin Isophane 300 UNIT/3 ML VIAL SC SCH (08:53)
[2020-09-22] MEDS: Zinc Sulfate 220 MG CAP PO SCH (08:53)
[2020-09-22] MEDS: Ergocalciferol 1.25 MG(50,000 UNITS) CAP PO SCH (09:20)
[2020-09-22 13:44] VITALS: BMI 33.3
[2020-09-22 16:32] LABS: ALT (SGPT) 62 U/L (8-55); AST (SGOT) 42 U/L (5-34); Albumin 2.5 g/dL (3.4-4.8); Alkaline Phosphatase 122 U/L (40-110); Bilirubin, Direct 0.5 mg/dL (0.1-0.3); Bilirubin, Total 0.6 mg/dL (0.2-1.2); Protein, Total 5.4 g/dL (5.8-8.1)
[2020-09-22] MEDS: Fluconazole In NaCl,Iso-Osm 100 MG, Admixture Fee 1 EACH in Premix Bag 1 BAG IVPB SCH (17:28)
[2020-09-22] MEDS: Atorvastatin Calcium 10 MG TAB PO SCH (20:59)
[2020-09-22] MEDS: Latanoprost 0.005% Ophth Soln 2.5 ml Bottle EA EYE SCH (21:00)
[2020-09-22] MEDS: Cholecalciferol 1,000 UNITS (25 MCG) TAB PO SCH (21:06)
[2020-09-22] MEDS: Insulin Glargine 52 UNITS in Pre-Filled Syringe 1 EACH SC SCH (21:15)
[2020-09-23] MEDS: Propofol 1,000 MG/100 ML VIAL IV PRN ×5 (03:19→22:34)
[2020-09-23] MEDS: Piperacillin/Tazobactam 3.375 GM in Sodium Chloride 0.9% 100 ML IVPB SCH ×4 (03:20→22:34)
[2020-09-23] MEDS: HumaLOG 300 UNITS/3 ML VIAL SC PRN ×2 (04:16→21:26)
[2020-09-23 04:52] LABS: Anion Gap 19 mmol/L (10-20); BUN (Urea Nitrogen) 92 mg/dL (8.4-25.7); Calc. Creatinine Clearance 27 mL/min (70-130); Calcium 7.1 mg/dL (7.8-10.44); Carbon Dioxide 21 mmol/L (23-31); Chloride 101 mmol/L (98-107); Glucose 189 mg/dL (83-110); Potassium 4.8 mmol/L (3.5-5.1); Sodium 136 mmol/L (136-145)
[2020-09-23 05:06] LABS: Band 10 % (5-11); Hemoglobin 8.5 g/dL (14.0-18.0); Lymphocytes 2 % (21-51); MDiff Complete? YES; Mean Corpuscular HGB CONC 32.6 g/dL (32.0-36.0); Mean Corpuscular Hemoglobin 29.5 pg (27.0-31.0); Mean Corpuscular Volume 90.4 fL (78.0-98.0); Mean Platelet Volume 9.2 fL (7.4-10.4); Metamyelocyte 4 % (0-0); Monocytes 4 % (0-10); Neutrophil 80 % (42-75); Nucleated RBC 1 % (0); Platelet Count 162 thou/uL (130-400); Platelet Morphology Comment Appears Adequate; RBC Distribution Width 14.9 % (11.5-14.5); Red Blood Cell (RBC) Count 2.87 mill/uL (4.70-6.10); White Blood Cell (WBC) Count 19.8 thou/uL (4.8-10.8)
[2020-09-23] MEDS: Zinc Sulfate 220 MG CAP PO SCH (08:38)
[2020-09-23] MEDS: Dexamethasone 4 mg/ml Vial SLOW IVP SCH (08:38)
[2020-09-23] MEDS: Famotidine 20 MG TAB PO SCH (08:38)
[2020-09-23] MEDS: Ascorbic Acid 500 mg Chewable Tablet PO SCH (08:38)
[2020-09-23] MEDS: Polyethylene Glycol 3350 17 GM Packet PO SCH (09:09)
[2020-09-23] MEDS: Heparin 5,000 UNITS/ML VIAL SC SCH ×2 (09:22→20:18)
[2020-09-23] MEDS: Lorazepam 2 MG/ML VIAL SLOW IVP PRN (09:50)
[2020-09-23] MEDS: Sodium Chloride 0.9% 1,000 ML IV SCH (11:08)
[2020-09-23] MEDS: Insulin Glargine 52 UNITS in Pre-Filled Syringe 1 EACH SC SCH (11:11)
[2020-09-23] MEDS ORDERED: Fentanyl CADD 100 ML ONE (13:32)
[2020-09-23] MEDS: Fentanyl CADD 100 ML IV SCH (13:33)
[2020-09-23 17:15] LABS: Vancomycin, Random 15.2 ug/mL (See Comment)
[2020-09-23] MEDS: Fluconazole In NaCl,Iso-Osm 100 MG, Admixture Fee 1 EACH in Premix Bag 1 BAG IVPB SCH (17:55)
[2020-09-23] MEDS ORDERED: Vancomycin 1 GM in Premix Bag 1 BAG IVPB SCH ×2 (18:15→21:00)
[2020-09-23] MEDS: Cholecalciferol 1,000 UNITS (25 MCG) TAB PO SCH (20:17)
[2020-09-23] MEDS: Atorvastatin Calcium 10 MG TAB PO SCH (20:17)
[2020-09-23] MEDS: Latanoprost 0.005% Ophth Soln 2.5 ml Bottle EA EYE SCH (20:17)
[2020-09-23] MEDS: HumuLIN 70/30 (300 UNITS/3 ML VIAL) SC SCH (21:25)
[2020-09-24] MEDS: Propofol 1,000 MG/100 ML VIAL IV PRN ×3 (03:37→10:35)
[2020-09-24] MEDS: Piperacillin/Tazobactam 3.375 GM in Sodium Chloride 0.9% 100 ML IVPB SCH ×2 (03:37→09:15)
[2020-09-24] MEDS: HumaLOG 300 UNITS/3 ML VIAL SC PRN (04:37)
[2020-09-24] MEDS ORDERED: Fentanyl CADD 100 ML ONE (04:40)
[2020-09-24] MEDS: Fentanyl CADD 100 ML IV SCH (04:42)
[2020-09-24 04:59] LABS: Anion Gap 21 mmol/L (10-20); BUN (Urea Nitrogen) 94 mg/dL (8.4-25.7); Calc. Creatinine Clearance 25 mL/min (70-130); Calcium 7.2 mg/dL (7.8-10.44); Carbon Dioxide 17 mmol/L (23-31); Chloride 101 mmol/L (98-107); Glucose 191 mg/dL (83-110); Potassium 4.9 mmol/L (3.5-5.1); Sodium 134 mmol/L (136-145)
[2020-09-24] MEDS: Morphine 2 MG/ML VIAL SLOW IVP PRN (05:47)
[2020-09-24 06:02] LABS: Band 1 % (5-11); Eosinophils 1 % (0-10); Hemoglobin 7.6 g/dL (14.0-18.0); Lymphocytes 5 % (21-51); MDiff Complete? YES; Mean Corpuscular HGB CONC 33.4 g/dL (32.0-36.0); Mean Corpuscular Volume 89.7 fL (78.0-98.0); Mean Platelet Volume 9.4 fL (7.4-10.4); Metamyelocyte 2 % (0-0); Monocytes 2 % (0-10); Myelocyte 4 % (0-0); Neutrophil 85 % (42-75); Nucleated RBC 1 % (0); Platelet Count 165 thou/uL (130-400); Platelet Morphology Comment Appears Adequate; RBC Distribution Width 15.1 % (11.5-14.5); RBC Morphology Normal; Red Blood Cell (RBC) Count 2.55 mill/uL (4.70-6.10); White Blood Cell (WBC) Count 20.6 thou/uL (4.8-10.8)
[2020-09-24] MEDS: Lorazepam 2 MG/ML VIAL SLOW IVP PRN (07:43)
[2020-09-24] MEDS ORDERED: Lorazepam 2 MG/ML VIAL SLOW IVP PRN (09:08)
[2020-09-24] MEDS ORDERED: Morphine 2 MG/ML VIAL SLOW IVP PRN (09:08)
[2020-09-24] MEDS ORDERED: Fentanyl BOLUS 250 ML IVPB PRN (09:09)
[2020-09-24] MEDS: Polyethylene Glycol 3350 17 GM Packet PO SCH (09:13)
[2020-09-24] MEDS: Dexamethasone 4 mg/ml Vial SLOW IVP SCH (09:15)
[2020-09-24] MEDS ORDERED: Fentanyl CADD 100 ML IV SCH (09:15)
[2020-09-24] MEDS: Heparin 5,000 UNITS/ML VIAL SC SCH (09:16)
[2020-09-24] MEDS: HumuLIN 70/30 (300 UNITS/3 ML VIAL) SC SCH (09:16)
[2020-09-24] MEDS: Famotidine 20 MG TAB PO SCH (09:16)
[2020-09-24] MEDS: Zinc Sulfate 220 MG CAP PO SCH (09:16)
[2020-09-24] MEDS: Ascorbic Acid 500 mg Chewable Tablet PO SCH (09:16)
[2020-09-24 10:55] VITALS: BP 125/64
[2020-09-24] MEDS ORDERED: Morphine 10 MG/ML VIAL SLOW IVP PRN (11:21)
== END 2020-09-24 12:00 | disposition expired | DRG 207 ==
LOC: ERS 17:46 → 2SW 20:20 → OBSVTOIN 20:20 → CCU 09-12 23:36
PROVIDERS: ADMIT Internal Medicine; ATTEND Internal Medicine
PROC: 8E0ZXY6 Isolation (ICD-10-PCS; 2020-09-11)
PROC: XW13325 Transfusion of Convalescent Plasma (Nonautologous) into Peripheral Vein, Percutaneous Approach, New Technology Group 5 (ICD-10-PCS; 2020-09-13)
PROC: 5A1955Z Respiratory Ventilation, Greater than 96 Consecutive Hours (ICD-10-PCS; principal; 2020-09-14)
PROC: 0BH17EZ Insertion of Endotracheal Airway into Trachea, Via Natural or Artificial Opening (ICD-10-PCS; 2020-09-14)
PROC: 06HY33Z Insertion of Infusion Device into Lower Vein, Percutaneous Approach (ICD-10-PCS; 2020-09-21)
DX: U07.1 COVID-19 (principal); J12.82 Pneumonia due to coronavirus disease 2019; G93.41 Metabolic encephalopathy; J96.01 Acute respiratory failure with hypoxia; N17.9 Acute kidney failure, unspecified; E87.2 Acidosis; N18.4 Chronic kidney disease, stage 4 (severe); I24.8 Other forms of acute ischemic heart disease; E87.1 Hypo-osmolality and hyponatremia; I12.9 Hypertensive chronic kidney disease with stage 1 through stage 4 chronic kidney disease, or unspecified chronic kidney disease; Z66 Do not resuscitate; Z51.5 Encounter for palliative care; E11.22 Type 2 diabetes mellitus with diabetic chronic kidney disease; D64.9 Anemia, unspecified; I48.0 Paroxysmal atrial fibrillation; R00.1 Bradycardia, unspecified; E83.51 Hypocalcemia; Z87.891 Personal history of nicotine dependence; Z79.899 Other long term (current) drug therapy; Z79.84 Long term (current) use of oral hypoglycemic drugs; I95.9 Hypotension, unspecified; T42.75XA Adverse effect of unspecified antiepileptic and sedative-hypnotic drugs, initial encounter; Y92.230 Patient room in hospital as the place of occurrence of the external cause
CPT/HCPCS: 0240U; 36415; 36416; 36430; 36600; 71045; 80048; 80053; 80076; 80202; 82040; 82306; 82553; 82728; 82805; 83605; 83735; 83880; 84484; 85025; 85379; 86140; 86850; 86900; 86901; 87070; 87205; 93005; 94002; 94003; 94660; 96365; 96372; 96375; J0456; J0696; J1100; J1450; J1644; J1650; J1815; J1940; J2001; J2060; J2270; J2543; J2704; J3010; J3370; J3486; J3490; J7030; J7050; J7070; P9017